=== PATIENT | male | born 1960 | race Caucasian/White ===

== ENCOUNTER 2017-09-05 10:24 | Emergency (ER) | payer SELFPAY ==
[~2017-09-05] VITALS: Ht 185.4 cm; Wt 103.0 kg
[~2017-09-05 10:24] MED LIST: LORT5TAB PO; MELO15TA2 PO; Z.0.UNKNOWN
[2017-09-05 10:27] VITALS: BP 143/82; PULSE 61; RESP 16; TEMP 97.6; O2SAT 97
[2017-09-05] MEDS ORDERED: [UNRECOGNIZED DRUG - REMARK] (10:38)
[2017-09-05] MEDS ORDERED: INDO50CA PO (10:38)
[2017-09-05] MEDS ORDERED: LISI40TA PO (10:38)
[2017-09-05] MEDS ORDERED: AMLO5TAB2 PO (10:38)
[2017-09-05] MEDS ORDERED: ALLO300T2 PO (10:38)
--- NOTE | 2017-09-05 10:43 | PD ---
HPI Chief Complaint: Fall Time Seen by Provider: 10:31 Travel History International Travel<30 days: No Contact w/Intl Traveler<30days: No Traveled to known affect area: No History of Present Illness HPI 56-year-old male presents to the emergency room for evaluation of left anterior shoulder pain and left upper arm pain after slip and fall yesterday. Patient slipped on algae and fell to the left striking his left elbow on the ground which caused his shoulder to be pushed up. He reports immediate pain in the shoulder. He took 2 Aleve yesterday without significant relief in symptoms. Pain is worsened with any range of motion. No radiation. Reports occasional paresthesias in the hand. Denies any pain in the elbow, wrist, or forearm. Patient denies hitting his head or loss of consciousness denies any other neck pain, back pain, or hip pain. PFSH Past Surgical History Eye Surgery: Yes (glaucoma surgery) Social History Alcohol Use: Yes (few beers every night) Tobacco Use: No Substance Use: No Allergies-Medications (Allergen,Severity, Reaction): Coded Allergies: No Known Allergies (Unverified Adverse Reaction, Unknown, 09/05/17) Reported Meds & Prescriptions Reported Meds & Active Scripts Active Reported [glaucoma drops?] Indomethacin 50 Mg Cap 50 Mg PO TID PRN Take with food, milk, or antacids to decrease stomach adverse effects. Amlodipine (Amlodipine Besylate) 5 Mg Tab 5 Mg PO DAILY Allopurinol 300 Mg Tab 300 Mg PO DAILY Lisinopril 40 Mg Tab 40 Mg PO DAILY Review of Systems Except as stated in HPI: all other systems reviewed are Neg Physical Exam Narrative GENERAL: Well-nourished, well-developed male in no acute distress. Afebrile. Ambulatory. SKIN: Focused skin assessment warm/dry. HEAD: Normocephalic. EYES: No scleral icterus. No injection or drainage. NECK: Supple, trachea midline. No JVD or lymphadenopathy. No midline tenderness of the spine. CARDIOVASCULAR: Regular rate and rhythm without murmurs, gallops, or rubs. RESPIRATORY: Breath sounds equal bilaterally. No accessory muscle use. MUSCULOSKELETAL: No cyanosis. No edema. 2+ radial pulse. Full range of motion of the elbow, wrist, and hand. Limited range of motion of the shoulder secondary to pain. There is pain with active and passive range of motion. Tenderness to palpation of the left anterior humeral head. No scapular or clavicular pain. Data Data Last Documented VS Vital Signs Date Time Temp Pulse Resp B/P (MAP) Pulse Ox O2 Delivery O2 Flow Rate FiO2 09/05/17 10:27 97.6 61 16 143/82 (102) 97 Orders Orders Humerus (Min 2vws) (09/05/17 ) Shoulder, Complete (>2vws) (09/05/17 ) MDM Medical Decision Making Medical Screen Exam Complete: Yes Emergency Medical Condition: Yes Medical Record Reviewed: Yes Differential Diagnosis Rotator cuff injury, strain, sprain, contusion, fracture, spasm Narrative Course 56-year-old male presents to the emergency room for evaluation of left shoulder pain after falling yesterday. Patient fell on his elbow which caused his shoulder to be shoved up. Denies any other injuries. Reports immediate pain localized to the left anterior humeral head. Physical exam is reassuring. There is tenderness to palpation but no obvious edema, obvious deformity, or ecchymosis. Left upper extremity is neurovascularly intact with 2+ radial pulse. Full range of motion of elbow, wrist, and hand. Limited range of motion of the shoulder secondary to pain. X-ray of the humerus is negative. 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 Patient was informed this is likely soft tissue injury and he will need an MRI if symptoms persist. Told to follow-up with primary care physician or return for worsening symptoms. He was discharged with prescriptions for ibuprofen and Robaxin. He understands and agrees to plan. Diagnosis Primary Impression: Injury of left shoulder Qualified Codes: S49.92XA - Unspecified injury of left shoulder and upper arm , initial encounter Referrals: Primary Care Physician Additional Instructions: Rest and drink plenty of fluids. Take Robaxin as directed, as needed for pain. Take ibuprofen with food as directed, as needed for pain. Apply ice to the affected area for 20 minutes at a time, as needed for pain and swelling. Follow-up with a primary care physician. Return to the emergency room for worsening symptoms. Med/Other Pt SpecificInfo: Prescription(s) given Disposition: 01 DISCHARGE HOME Condition: Stable Radha Finnegan Sep 05, 2017 10:43
--- NOTE | 2017-09-05 10:54 | RADRPT ---
EXAM DATE/TIME: 09/05/2017 10:43 [facility] COMPARISON: No previous studies available for comparison. INDICATIONS : Left shoulder pain post fall onto left arm yesterday. Decreased range of motion. Unable to abduct arm . MEDICAL HISTORY : Hypertension. Gout. SURGICAL HISTORY : None. ENCOUNTER: Initial ACUITY: 2 days PAIN SCORE: 8/10 LOCATION: Left shoulder FINDINGS: The glenohumeral relationship is normal. There is no evidence of fracture or dislocation. There is pr ominent arthritic change the a.c. joint with downward directed spurs. The adjacent clavicle and ribs appear intact. CONCLUSION: Significant arthritic change at the a.c. joint. No evidence of acute bony injury Cas Nino MD on September 05, 2017 at 10:51 Board Certified Radiologist. This report was verified electronically.
--- NOTE | 2017-09-05 10:54 | RADRPT ---
EXAM DATE/TIME: 09/05/2017 10:43 [facility] COMPARISON: No previous studies available for comparison. INDICATIONS : Left proximal humerus pain post fall onto left arm yesterday. Decreased range of motion. Unable to ab duct arm. MEDICAL HISTORY : Hypertension. Gout. SURGICAL HISTORY : None. ENCOUNTER: Initial ACUITY: 2 days PAIN SCORE: 8/10 LOCATION: Left proximal humerus FINDINGS: Two view examination of the left humerus demonstrates no evidence of fracture or dislocation. Bony m ineralization is normal. The soft tissue structures are intact. CONCLUSION: Unremarkable examination of the left humerus. Cas Nino MD on September 05, 2017 at 10:52 Board Certified Radiologist. This report was verified electronically.
[2017-09-05] MEDS ORDERED: ROBA750T PO (11:11)
[2017-09-05] MEDS ORDERED: IBUP-232 PO (11:11)
== END 2017-09-05 11:22 | disposition home or self-care (01) ==
LOC: PHEFT 10:24
DX: S49.92XA Unspecified injury of left shoulder and upper arm, initial encounter (principal); I10 Essential (primary) hypertension; W01.0XXA Fall on same level from slipping, tripping and stumbling without subsequent striking against object, initial encounter; Z79.899 Other long term (current) drug therapy
CPT/HCPCS: 73030; 73060; 99283